=== PATIENT | female | born 1995 | race Caucasian/White ===

== ENCOUNTER → 2018-11-23 14:22 | Outpatient (CLI) | payer OTHER, SELFPAY ==
--- NOTE | 2018-11-23 | DI.US.S_ITS ---
PROCEDURE: US OB <= 14 WEEKS FETUS INDICATIONS: SIZE AND DATING OUTSIDE/PRIOR DATING DATA: Last menstrual period (LMP): 09/08/18. LMP-based estimated date of delivery (MEGHA): 06/15/19. First dating scan (date and location): 11/23/18, [facility]. Estimated date of delivery (MEGHA) from first dating scan: 06/10/19. TECHNIQUE: Real-time scanning was performed of the fetus and maternal pelvic organs, with image documentation. Endovaginal scanning was also performed to better visualize the fetus and maternal ovaries. COMPARISON: None. FINDINGS: Embryo: A single live intrauterine is seen. The measured heart rate is 173 beats per minute. The crown-rump length measures 4.8 cm, corresponding to an estimated gestational age of 11 weeks 4 days. It is too early for detailed anatomic assessment. By visual inspection, the amount of amniotic fluid is within normal limits. No significant findings of subchorionic/perigestational hemorrhage are seen. Measurement variability in dating: +/- 4 weeks by LMP, +/- 7 days by mean sac diameter (use before 6 weeks gestation if crown-rump length not able to be measured), +/- 5 days by crown-rump length (up to 8 weeks 6 days gestation), +/- 7 days by crown-rump length (up to 13 weeks 6 days gestation). Maternal organs: A corpus luteum can be seen involving the right ovary. Limited images through the kidneys demonstrate no hydronephrosis. IMPRESSION: A single live intrauterine is seen. No significant discrepancy is found between the estimated gestational age based on these images and the estimated gestational age based upon the given date of the last menstrual period. Dictated by: Patrick Manjarrez M.D. on 11/23/2018 at 14:54 Approved by: Patrick Manjarrez M.D. on 11/23/2018 at 14:55
== END ==
PROVIDERS: Visit Provider Nurse Practitioner Obstetrics & Gynecology
DX: Z34.91 Encounter for supervision of normal pregnancy, unspecified, first trimester (principal); Z3A.11 11 weeks gestation of pregnancy
CPT/HCPCS: 76801; 76817